=== PATIENT | male | born 1965 | race Caucasian/White ===

== ENCOUNTER 2016-03-14 09:36 | Emergency (ER) | payer MEDICARE, OTHER ==
[2016-03-14] MEDS ORDERED: MORPHINE 4 MG/ML SYR ONE (10:30)
[2016-03-14] MEDS ORDERED: ONDANSETRON ODT 4 MG TAB ONE (10:31)
[2016-03-14] MEDS ORDERED: CYCLOBENZAPRINE 10 MG TAB ONE (10:31)
== END 2016-03-14 12:02 | disposition home or self-care (01) ==
LOC: ER 09:36 → FASTR 12:02
CPT/HCPCS: 72050 ×2; 72100 ×2; 96372 ×2; 99284; J2270

== ENCOUNTER 2016-03-19 12:22 | Emergency (ER) | payer MEDICARE ==
[2016-03-19] MEDS ORDERED: KETOROLAC 60 MG/2 ML VIAL IM ONE (13:59)
[2016-03-19] MEDS ORDERED: METHYLPRED SOD SUCC 125 MG/2 ML VIAL ONE (13:59)
== END 2016-03-19 14:48 | disposition home or self-care (01) ==
LOC: ER 12:22
DX: M54.2 Cervicalgia (principal); M54.5 Low back pain
CPT/HCPCS: 96372; 99283; J2930

== ENCOUNTER 2016-03-27 09:05 | Emergency (ER) | payer MEDICARE ==
[2016-03-27] MEDS ORDERED: DILAUDID 1 MG/ML AMP ONE (09:55)
[2016-03-27] MEDS ORDERED: KETOROLAC 60 MG/2 ML VIAL IM ONE (09:55)
== END 2016-03-27 11:07 | disposition home or self-care (01) ==
LOC: ER 09:05
DX: S39.012A Strain of muscle, fascia and tendon of lower back, initial encounter (principal); M51.16 Intervertebral disc disorders with radiculopathy, lumbar region
CPT/HCPCS: 72100; 96372; 99284; J1170

== ENCOUNTER → 2016-04-01 | Emergency (ER) | payer MEDICARE | LOC: ER 11:45 | DX: Z53.21 Procedure and treatment not carried out due to patient leaving prior to being seen by health care provider (principal) | CPT/HCPCS: 99281 ==